=== PATIENT | male | born 1955 | race Caucasian/White ===

== ENCOUNTER 2016-10-09 10:37 | Emergency (ER) | payer MEDICARE, SELFPAY ==
--- NOTE | ~2016-10-09 | EKG ---
PATIENT: EVY LOCK UNIT #: [id number] Ventricular Rate: 94 BPM Atrial Rate: 94 BPM P-R Interval: 126 ms QRS Duration: 128 ms Q-T Interval: 402 ms QTC Calculation(Bezet): 502 ms P Ghent: 75 degrees Calculated R Ghen[place]: 164 degrees Calculated T Ghent: 57 degrees Diagnosis Line: Sinus rhythm with Premature atrial complexes Diagnosis Line: Right bundle branch block Diagnosis Line: Left posterior fascicular block Diagnosis Line: Bifascicular block Diagnosis Line: Abnormal ECG Diagnosis Line: When compared with ECG of 13-JUL-2016 16:16, Diagnosis Line: Premature atrial complexes are now Present Diagnosis Line: Left posterior fascicular block is now Present Diagnosis Line: Confirmed by BARB HERNANDEZ, DION ([id number]) on 10/10/2016 Diagnosis Line: 5:49:01 AM INTERPRETING MD: BARB HERNANDEZ
--- NOTE | ~2016-10-09 | CR72 ---
[facility] A Service of [facility] & [facility] RADIOLOGY TEXT RESULTS PATIENT: VEY LOCK LOCATION: [facility] : 53 UNIT #: [id number] AGE: [address]: Mark Padilla MD SEX: M ORDER DR: [id number] [facility] [address] [place], [place] [address] [id number] MR#: [id number] Acc #: [id number] NAME: EVY LOCK : 1955 SEX: M STUDY DATE/TIME: 10/09/2016 11:14 UNIT: [facility] ROOM: STUDY DESCRIPTION: CR Chest Single View Portable Attending Physician: Mark Padilla M.D. Ordering Physician: Mark Padilla M.D. Primary Care Physician: Fredy Goldsmith M.D. MEDICAL IMAGING REPORT This report is preliminary unless electronic signature is present EXAM Portable chest INDICATIONS Shortness of breath, cough for 6 days, compared with 07/05/2016. FINDINGS There are increased interstitial opacities in the lungs and some vague airspace opacities. Patient has a history of congestive heart failure and these findings likely represent some mild pulmonary edema. Heart size stable. ICD. IMPRESSION Increased interstitial opacities and vague airspace opacities suggesting pulmonary edema in this patient with congestive heart failure. Dictated by... Fermin Nagel M.D. THIS IS AN ELECTRONICALLY VERIFIED REPORT Fermin Nagel M.D. at 10/10/2016 2:21 PM ARS/jacques TD: 10/10/2016 00:29 JOB #: [id number] MEDICAL IMAGING REPORT Page 1 of 1 COPY
[~2016-10-09 10:37] MED LIST: ACETAMINOPHEN500 M3 PO; ADVAIR 5001 DISK W/D PO; ALBUTEROL17 GM INH; ASPIRIN PO; ASPIRIN81 MG PO; ATENOLOL PO; BRILINTA90 MG PO; BUMEX1 MG PO; CARVEDILOL3.125 MG PO; CELEXA PO; COLACE PO; COMBIVENT INHALER INH; COMBIVENT MININEB INH; COMBIVENT U/D3 M4 INH; CORDARONE200 M1 PO; COREG3.125 MG PO; CRESTOR PO; DULCOLAX5 MG; DULOXETINE HCL60 MG PO; EFFIENT10 MG PO; ENTRESTO 24 MG1 EACH PO; FLEXERIL10 MG PO; GABAPENTIN300 M2 PO; HYDROCODON-ACE1 EAC7 PO; HYDROCODONE-ACE10 M1; IMDUR PO; IMDUR-ER30 M1 PO; ISOSORBIDE DINI30 MG PO; K-DUR20 ME1 PO; LASIX PO; LEVAQUIN PO; LEVOFLOXACIN750 MG PO; LIPITOR80 MG PO; LISINOPRIL PO; LOW DOSE ASPIRI81 M1 PO; MEVACOR40 MG PO; MUCINEX D ER T1 EAC1 PO; NEURONTIN300 MG PO; NIASPAN PO; NITROGYLCERIN SUBLINGUAL; NITROQUICK0.4 MG SL; NITROSTAT0.4 MG SL; NORCO 5/325 TAB1 TAB PO; PHENERGAN25 MG PO; PLAVIX PO; PREDNISONE PO; PROAMATINE10 MG PO; PROCTOFOAM-HC F10 GM PR; PROSCAR5 MG PO; REMERON30 MG PO; SENOKOT TO GO8.6 MG PO; SYMBICORT INH; TYLENOL325 M1 PO; ULTRAM PO; VICODIN 5/500 T1 TAB PO; WELLBUTRIN PO; ZESTRIL2.5 MG PO; ZITHROMAX PO; ZOCOR PO
[2016-10-09 11:41] LABS: BASOPHIL% 0.2 % (0-2.5); EOSINOPHIL# 0.2 X10e3 (0-0.7); EOSINOPHIL% 2.3 % (0.0-7.0); HEMATOCRIT 45.1 % (38.0-50.0); HEMOGLOBIN 14.7 gm/dL (13.0-16.0); LYMPHOCYTE# 0.9 X10e3 (1.0-3.5); MEAN CORPUSCULAR HEMOGLOBIN 31.9 PG (28-34); MEAN CORPUSCULAR HGB CONC 32.6 g/dL (30-36); MONOCYTE# 1.5 X10e3 (0-1.0); NEUTROPHIL# 7.3 X10e3 (1.5-7.1); NEUTROPHIL% 73.5 % (40-75); PLATELET COUNT 329 X10e3 (140-420); RED CELL DISTRIBUTION WIDTH 13.6 % (11.0-15.5); WHITE BLOOD COUNT 9.9 X10e3 (4.0-10.5)
[2016-10-09 11:49] LABS: DIFF IND NO
[2016-10-09 11:57] LABS: INFLUENZA A NEG (NEG); INFLUENZA B NEG (NEG)
[2016-10-09 12:04] LABS: ALBUMIN SERUM 3.8 g/dL (3.5-5.0); BILIRUBIN, DIRECT 0.3 mg/dL (0.0-0.2); BILIRUBIN,INDIRECT 0.9 mg/dL (0.0-0.9); BILIRUBIN,TOTAL 1.2 mg/dL (0.2-2.0); BUN/CREATININE RATIO 18.88; CALCIUM SERUM 9.6 mg/dL (8.4-10.2); CREATININE SERUM 0.9 mg/dL (0.6-1.4); GLOM FILT RATE Estimated 91.2 mL/min (>60); POTASSIUM 4.5 mmol/L (3.5-5.1); PROTEIN TOTAL SERUM 8.5 g/dL (6.0-8.3)
== END 2016-10-09 12:40 | disposition home or self-care (01) ==
LOC: CED 10:37
PROVIDERS: Emergency Medicine
DX: J44.1 Chronic obstructive pulmonary disease with (acute) exacerbation (principal); I11.0 Hypertensive heart disease with heart failure; I50.1 Left ventricular failure, unspecified; F32.9 Major depressive disorder, single episode, unspecified; I25.2 Old myocardial infarction; J45.909 Unspecified asthma, uncomplicated; Z95.1 Presence of aortocoronary bypass graft; Z95.0 Presence of cardiac pacemaker; Z79.82 Long term (current) use of aspirin; Z91.040 Latex allergy status; Z79.899 Other long term (current) drug therapy; Z91.09 Other allergy status, other than to drugs and biological substances
CPT/HCPCS: 36415; 71010; 80048; 80076; 83880; 85025; 87804; 93005; 94640; 96374; 96375; 99284; J1940; J2930